=== PATIENT | female | born 1995 | race Hispanic/Latino ===

== ENCOUNTER 2017-12-18 15:19 | Emergency (ER) | payer BC ==
[2017-12-18 15:34] VITALS: RESP 18
[2017-12-18] MEDS ORDERED: Naproxen 500 MG TAB PO STA (16:09)
--- NOTE | 2017-12-18 16:09 | ED PDOC ---
HPI: Female Pain Time Seen by Provider: 12/18/17 15:40 Chief Complaint (Nursing): Female Genitourinary Chief Complaint (Provider): Female Genitourinary History Per: Patient History/Exam Limitations: no limitations Onset/Duration Of Symptoms: Hrs (Last night) Current Symptoms Are (Timing): Still Present Associated Symptoms: denies: Nausea, Vomiting, Diarrhea Additional Complaint(s): 22 year old female presents to the ED for evaluation of dysuria and frequency associated with lower abdominal pain since last night. She reports history of UTI with similar symptoms but has not had to be treated since high school. 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 Notes small amount of blood in urine upon urinating in the ED. Patient has no other complaints. Denies fever, chills, back pain, flank pain, nausea, vomiting, or diarrhea. Patient is sexually active with one male partner but denies vaginal discharge or abnormal bleeding. LMP December 11. PMD: none Past Medical History Reviewed: Historical Data, Nursing Documentation, Vital Signs Vital Signs: Last Vital Signs Temp 98.1 F 12/18/17 15:32 Pulse 98 H 12/18/17 15:32 Resp 18 12/18/17 15:32 BP 119/72 12/18/17 15:32 Pulse Ox 99 12/18/17 15:32 - Medical History PMH: No Chronic Diseases - Surgical History Other surgeries: Procedure to left finger due to fracture - Family History Family History: States: Unknown Family Hx - Home Medications Home Medications: Ambulatory Orders Medication Instructions Recorded Naproxen 500 mg PO BID PRN #20 tab 12/18/17 Nitrofurantoin Macrocrystals 100 mg PO BID #14 cap 12/18/17 [Macrobid] Phenazopyridine HCl [Pyridium] 200 mg PO BID PRN #4 tablet 12/18/17 - Allergies Allergies/Adverse Reactions: Allergies Allergy/AdvReac Type Severity Reaction Status Date / Time No Known Allergies Allergy Verified 12/18/17 15:31 Review of Systems ROS Statement: Except As Marked, All Systems Reviewed And Found Negative Constitutional: Negative for: Fever, Chills Gastrointestinal: Positive for: Abdominal Pain (lower). Negative for: Nausea, Vomiting, Diarrhea Genitourinary Female: Positive for: Dysuria, Frequency. Negative for: Vaginal Discharge, Vaginal Bleeding Musculoskeletal: Negative for: Back Pain, Other (flank pain) Physical Exam - Reviewed Nursing Documentation Reviewed: Yes Vital Signs Reviewed: Yes - Physical Exam Comments: GENERAL APPEARANCE: Patient is awake, alert, oriented x 3, in no acute distress. Resting comfortably. SKIN: Warm, dry; (-) cyanosis. ENMT: Mucous membranes moist. Airway patent: (-) stridor. NECK: Supple, FROM CHEST AND RESPIRATORY: (-) wheezing; (-) rales, (-) rhonchi; breath sounds equal bilaterally. HEART AND CARDIOVASCULAR: (-) irregularity ABDOMEN AND GI: Mild suprapubic discomfort. Soft; remainder of abdomen (-) tenderness (-) guarding (-) distention. BACK: (-) CVA tenderness EXTREMITIES: (-) deformity NEURO AND PSYCH: Mental status as above; (-) focal findings. Gait: steady. Speech: clear. (-) facial asymmetry. - Laboratory Results Urine POC: Negative - ECG O2 Sat by Pulse Oximetry: 99 (RA) Pulse Ox Interpretation: Normal Medical Decision Making Medical Decision Making: Initial Impression: Dysuria, urinary frequency probable UTI Initial Plan: --ED urine --Naproxen 500mg PO --Pyridium 200mg PO --Urine culture --Urinalysis Upreg: negative 1635 U/A reviewed (+) UTI Macrobid 100mg PO administered. 1650 On re-evaluation, patient reports improvement of symptoms. On exam, patient remains AAOx3, in no acute distress. Lungs clear to auscultation, cardiac RRR, repeat neuro exam shows no focal findings. Vitals stable. Lab/Diagnostic results d/w the patient in great detail. Diagnosis of UTI, dysuria d/w the patient. Based on history, exam and diagnostic results, plan will be for outpatient follow up. Patient instructed to follow-up with pmd / referral provided / the clinic in 1- 2 days without fail. Advised to take medication as prescribed. Return to the emergency room at any time for any new or worsening symptoms. Patient states she fully agrees with and understands discharge instructions. States that she agrees with the plan and disposition. Verbalized and repeated discharge instructions and plan. I have given the patient opportunity to ask any additional questions. Scribe Attestation: Documented by Zuhair Jon acting as a scribe for Aleena CARDENAS. Provider Scribe Attestation: All medical record entries made by the Scribe were at my direction and personally dictated by me. I have reviewed the chart and agree that the record accurately reflects my personal performance of the history, physical exam, medical decision making, and the department course for this patient. I have also personally directed, reviewed, and agree with the discharge instructions and disposition. Disposition - Clinical Impression Clinical Impression: Urinary tract infection, Dysuria - Patient ED Disposition Is Patient to be Admitted: No Counseled Patient/Family Regarding: Studies Performed, Diagnosis, Need For Followup, Rx Given - Disposition Referrals: [facility] [Outside] Bravo Argueta Jr., MD [Staff Provider] - Disposition: Routine/Home Disposition Time: 16:50 Condition: STABLE Additional Instructions: The emergency medical care you received today was directed at your acute symptoms. If you were prescribed any medication, please fill it and take as directed. It may take several days for your symptoms to resolve. Return to the Emergency Department if your symptoms worsen, do not improve, or if you have any other problems. Please contact your doctor in 2 days for re-evaluation and follow up / or call one of the physicians/clinics you have been referred to that are listed on the Patient Visit Information form that is included in your discharge packet. Bring any paperwork you were given at discharge with you along with any medications you are taking to your follow up visit. Our treatment cannot replace ongoing medical care by a primary care provider (PCP) outside of the emergency department. Prescriptions: Naproxen 500 mg PO BID PRN #20 tab PRN Reason: Pain, Moderate (4-7) Nitrofurantoin Macrocrystals [Macrobid] 100 mg PO BID #14 cap Phenazopyridine HCl [Pyridium] 200 mg PO BID PRN #4 tablet PRN Reason: urinary discomfort Instructions: Urinary Tract Infections in Adults, Dysuria, Adult (DC) Forms: [employer] (Greenlandic) Print Language: ARMENIAN - POA Present On Arrival: None Results - Lab Results Lab Results: 12/18/17 16:05 Urine Color Yellow Urine Clarity Cloudy Urine pH 6.0 Ur Specific [place] 1.027 Urine Protein 100 Urine Glucose (UA) Neg Urine Ketones Negative Urine Blood Moderate Urine Nitrate Negative Urine Bilirubin Negative Urine Urobilinogen 2.0 H Ur Leukocyte Esterase Large Urine RBC (Auto) 316 H Urine Microscopic WBC 363 H Ur Squamous Epith Cells 4 Urine Bacteria Mod H Hyaline Casts 0-2
[2017-12-18 16:18] LABS: SQUAMOUS EPITHIAL 4 /hpf (0-5); URINE BACTERIA MOD (<OCC); URINE BILIRUBIN NEGATIVE (NEGATIVE); URINE BLOOD MODERATE (NEGATIVE); URINE CLARITY CLOUDY (Clear); URINE COLOR YELLOW (YELLOW); URINE GLUCOSE (UA) NEG (Normal); URINE HYALINE CAST 0-2 /hpf (0-2); URINE LEUKOCYTE ESTERASE LARGE Leu/uL (Negative); URINE PROTEIN 100 mg/dL (NEGATIVE)
[2017-12-18] MEDS ORDERED: Naproxen 500 MG TAB PO ONE (16:33)
[2017-12-18 17:00] VITALS: BP 122/78; PULSE 76; TEMP 98; O2SAT 100
== END 2017-12-18 16:59 | disposition home or self-care (01) ==
LOC: H.ER 15:19 → EDBD 15:19 → H.ER 16:59
DX: N39.0 Urinary tract infection, site not specified (principal); Z87.440 Personal history of urinary (tract) infections